=== PATIENT | female | born 1935 | race Caucasian/White ===

== ENCOUNTER → 2016-04-25 | Outpatient (CLI) | payer MEDICARE, MEDICAID ==
--- NOTE | 2016-04-25 16:11 | RADRPT ---
PROCEDURE: XR Right hip and pelvis. CLINICAL INDICATION: Right hip pain. Pelvic pain. Postop. TECHNIQUE: Two views. Frontal pelvis and lateral right hip. COMPARISON: 12/14/2008. FINDINGS: There is no fracture or dislocation. The soft tissues are normal. 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 There are mild degenerative changes of the left hip with osteophytes noted. There is no lytic or blastic lesion. The upper pelvis is not completely included on the image. IMPRESSION: 1. Satisfactory postoperative appearance of the right hip. 2. Mild degenerative changes of the left hip. 3. Otherwise unremarkable study. RPTAT: QQ .Bret Arndt MD, MD Date Time Electronically viewed and signed by .Bert Arndt MD, on 04/25/2016 16:11 .R/
--- NOTE | 2016-04-25 21:49 | HKNOTE ---
DATE OF SERVICE: 04/25/2016 MAIN COMPLAINT: Pain in the right hip. HISTORY OF MAIN COMPLAINT: The patient is an 81-year-old female who underwent a right hip hemiarthr oplasty performed by me in 2008. She has never had any problems with the hip. She states, "It has been wonderful." About 3 weeks ago, she developed pain in her right buttock and she is wondering if it is connected in any way with her hip. PRESENT COMPLAINTS: The pain is in the skin over the right buttock and radiates to the lower back. She states that it either is an itching pain or it feels like boiling water being poured onto her s kin. PHYSICAL EXAMINATION: There is no rash over the right buttocks. Neurological examination of the lo wer extremities is normal. The right hip has a full range of motion. IMAGING: X-rays of the right hip show a perfect hemiarthroplasty. MANAGEMENT: The patient has a history of shingles and this may be a prodromal form of shingles. Kita irizarry was given a prescription for acyclovir. She has been attending with a physician expert at [facility] on shingles. She will return to see him if the condition does not settle down or she develops a rash. Dictated By: DEMETRIUS MARIEE/SHYLA Conf#: [id number] DID#: [id number]
== END | disposition home or self-care (01) ==
LOC: HKI 15:52
DX: R52 Pain, unspecified (principal); M54.5 Low back pain; B02.9 Zoster without complications; Z96.641 Presence of right artificial hip joint
CPT/HCPCS: 73502; G0463